=== PATIENT | female | born 1940 | race Caucasian/White ===

== ENCOUNTER 2017-01-21 17:57 | Inpatient (IN) | payer MEDICARE, BC ==
[~2017-01-21] VITALS: Ht 170.2 cm; Wt 76.8 kg
[~2017-01-21 17:57] MED LIST: ALEN10 PO; BLOOD PRESSURE; BONETAB; FISH1000 PO; FOLI800T12 PO; HYDR-3533 PO; TRAZ50TA78 PO; VITA250L PO; VITA500015 PO; ZOCO40TA PO
[2017-01-21 18:04] VITALS: BP 192/71; PULSE 122; RESP 20; TEMP 102.8; O2SAT 94
--- NOTE | 2017-01-21 18:43 | RADRPT ---
EXAM DATE/TIME: 01/21/2017 18:32 [facility] COMPARISON: No previous studies available for comparison. INDICATIONS : Fever, chest pain MEDICAL HISTORY : None. SURGICAL HISTORY : None. ENCOUNTER: Initial ACUITY: 4 - 6 days PAIN SCORE: 3/10 LOCATION: Bilateral chest FINDINGS: There is mild left base atelectasis. Lungs otherwise are clear. No pleural effusion. No pneumothorax. Heart size within normal limits. CONCLUSION: Mild left base atelectasis. Nathanael Umanzor MD on January 21, 2017 at 18:41 Board Certified Radiologist. This report was verified electronically.
[2017-01-21 19:12] LABS: AUTOMATED NEUTROPHIL # 8.9 TH/MM3 (1.8-7.7); BASOPHIL % 0.3 % (0.0-2.0); HEMATOCRIT 35.4 % (35.0-46.0); HEMO FLAGS DIFF FINAL; LYMPH % 10.6 % (9.0-44.0); LYMPHOCYTE # 1.2 TH/MM3 (1.0-4.8); MEAN CELL VOLUME 95.1 FL (80.0-100.0); MEAN CORPUSCULAR HEMOGLOBIN 32.4 PG (27.0-34.0); MEAN CORPUSCULAR HGB CONC 34.1 % (32.0-36.0); MONO % 10.7 % (0.0-8.0); NEUT % 78.4 % (16.0-70.0); PLATELET COUNT 225 TH/MM3 (150-450); RED BLOOD COUNT 3.73 MIL/MM3 (4.00-5.30); RED CELL DISTRIBUTION WIDTH 13.1 % (11.6-17.2); WHITE BLOOD COUNT 11.3 TH/MM3 (4.0-11.0)
[2017-01-21 19:15] LABS: BACTERIA, URINE MOD /hpf; BLOOD, URINE MOD (NEG); COMMENT (UR) CULTURE INDICATED; CULTURE IF INDICATED CULTURE INDICATED; GLUCOSE,URINE NEG (NEG); KETONE, URINE 10 mg/dL (NEG); MUCUS URINE FEW /lpf (OCC); NITRITE,URINE NEG (NEG); SQUAMOUS EPITHELIAL CELL URINE <1 /hpf (0-5); URINE COLOR YELLOW (YELLW/STRAW)
[2017-01-21 19:22] LABS: INTERNATIONAL NORMALIZED RATIO 1.2 RATIO; PROTHROMBIN TIME - PATIENT 12.8 SEC (9.8-11.6)
[2017-01-21 19:49] VITALS: BP 134/79; PULSE 90; RESP 22; O2SAT 95
[2017-01-21] MEDS ORDERED: SODIUM CHLOR 0.9% 1000 ML INJ 1,000 ML IV ONE (20:00)
[2017-01-21] MEDS ORDERED: ACETAMINOPHEN 325 MG TAB PO ONE (20:00)
[2017-01-21] MEDS ORDERED: cefTRIAXone INJ 1,000 MG in SODIUM CHLORIDE 0.9% INJ 100 ML IV ONE (20:00)
[2017-01-21 20:04] LABS: ANION GAP 9 MEQ/L (5-15); AST (GOT) 18 U/L (15-37); BICARBONATE 26.5 MEQ/L (21.0-32.0); BLOOD UREA NITROGEN 16 MG/DL (7-18); CHLORIDE 100 MEQ/L (98-107); GLOMERULAR FILTRATION RATE 45 ML/MIN (>89); POTASSIUM 3.3 MEQ/L (3.5-5.1); SODIUM (NA) 135 MEQ/L (136-145)
[2017-01-21 20:06] LABS: ALT (GPT) 21 U/L (10-53)
[2017-01-21 20:07] LABS: ALKALINE PHOSPHATASE 70 U/L (45-117); TOTAL BILIRUBIN ADULT 0.6 MG/DL (0.2-1.0)
--- NOTE | 2017-01-21 20:09 | PD ---
HPI Chief Complaint: Fever Time Seen by Provider: 19:55 Travel History International Travel<30 days: No Contact w/Intl Traveler<30days: No Traveled to known affect area: No History of Present Illness HPI The patient is a 76 year old female who presents to the [facility] emergency department with a history of reportedly feeling ill for the last 2 weeks. She reports that she's had chest pain in the center of her chest that comes and goes and she reports as a gnawing sensation. She reports that she's had generalized weakness, chills, subjective fever for the last 2-3 days associated with dysuria, urinary frequency, and urinary urgency. She called her primary care physician, Dr. Corbin Warner her today and he told her to report to the emergency department for evaluation and treatment. The patient arrives tachycardic with a heart rate in the 120s, fever to MAXIMUM TEMPERATURE of 102. The patient denies taking any fever reducers today. She denies taking aspirin on a daily basis. She denies any history of cardiac disease. She denies having any shortness of breath, radiation of pain from her chest. She denies having any nausea or diaphoresis. She denies having any vomiting or diarrhea. Her last bowel movement was earlier today. She denies having any blood in her stool or black or tarry stools. She denies having any cough or congestion. She denies having any neck pain. The patient reports that she did receive her pneumonia vaccine as well as her influenza vaccination this past season. She denies having any one-sided weakness, slurred speech, facial droop , difficulty with word finding ability, vision changes, or numbness or tingling to her extremities. [facility] Past Medical History Narrative Medical The patient's past medical history is significant for hyperlipidemia, hypertension, history of insomnia, history of osteopenia. Cancer: No High Cholesterol: Yes Diabetes: No Diminished Hearing: No Hepatitis: No Hiatal Hernia: No Hypertension: Yes Immunizations Current: Yes Thyroid Disease: No Tetanus Vaccination: Unknown Influenza Vaccination: Yes Menopausal: Yes Past Surgical History Narrative Surgical The patient's past surgical history is significant for ganglion cyst resection, hysterectomy, tonsillectomy. Gynecologic Surgery: Yes (PARTIAL HYSTERECTOMY) Hysterectomy: Yes Oral Surgery: Yes (TONSILLECTOMY) Tonsillectomy: Yes Other Surgery: Yes Social History Alcohol Use: Yes (occu red wine) Tobacco Use: Yes (quit 15 yrs ago more than a ppd) Substance Use: No Allergies-Medications (Allergen,Severity, Reaction): Coded Allergies: Penicillin (Verified Allergy, Severe, RASH, 05/31/14) Shellfish (Verified Allergy, Severe, RASH, 05/31/14) Reported Meds & Prescriptions Reported Meds & Active Scripts Active Review of Systems Except as stated in HPI: all other systems reviewed are Neg General / Constitutional: No: Fever Eyes: No: Visual changes HENT: No: Headaches, Rhinorrhea, Congestion, Neck Pain Cardiovascular: Positive: Chest Pain or Discomfort, No: Dyspnea on exertion Respiratory: No: Shortness of Breath Gastrointestinal: Positive: Loss of Appetite, No: Nausea, Vomiting, Diarrhea, Abdominal Pain, Constipation, Changes in Bowel Habits, Indigestion Genitourinary: Positive: Urgency, Frequency, Dysuria, No: Flank Pain Musculoskeletal: Positive: Myalgias, Pain Skin: No Rash Neurologic: Positive: Weakness (generalized weakness), No: Focal Abnormalities , Change in Mentation, Slurred Speech, Sensory Disturbance Psychiatric: No: Depression Endocrine: No: Polydipsia Hematologic/Lymphatic: No: Easy Bruising Physical Exam Narrative General: The patient is a well-developed well-nourished female in no acute distress. Head and Neck exam: Head is normocephalic atraumatic. Eyes: EOMI, pupils are equal round and reactive to light. Nose: Midline septum with pink mucous membranes Mouth: Dentition unremarkable. Tacky mucus membranes. Posterior oropharynx is not erythematous. No tonsillar hypertrophy. Uvula midline. Airway patent. Neck: No palpable lymphadenopathy. No nuchal rigidity. No thyromegaly. Cardiovascular: Regular rate and rhythm without murmurs, gallops, or rubs. No pulse deficit to the extremities and simultaneous auscultation and palpation of the radial artery. Lungs: Clear to auscultation bilaterally. No wheezes, rhonchi, or rales. Abdomen: Soft, without tenderness to palpation in all 4 quadrants of the abdomen. No guarding, rebound, or rigidity. Normal bowel sounds are audible. No tenderness on palpation of McBurney's point. Negative [place] sign. Extremities: No clubbing, cyanosis, or edema. 2+ pulses in all 4 extremities. No calf tenderness on palpation. Back: No spinous process tenderness to palpation. No costovertebral angle tenderness to palpation. Neurologic Exam: Grossly nonfocal. Skin Exam: No rash noted. Intact skin that is warm and dry. Data Data Last Documented VS Vital Signs Date Time Temp Pulse Resp B/P Pulse Ox O2 Delivery O2 Flow Rate FiO2 01/21/17 20:48 90 18 147/74 98 Room Air 01/21/17 18:04 102.8 Orders Complete Blood Count With Diff (01/21/17 18:20) Comprehensive Metabolic Panel (01/21/17 18:20) Urinalysis - C+S If Indicated (01/21/17 18:20) Lactic Acid Sepsis Protocol (01/21/17 18:20) Chest, Single Ap (01/21/17 18:20) Blood Culture (01/21/17 18:20) Iv Access Insert/Monitor (01/21/17 18:20) Electrocardiogram (01/21/17 ) Prothrombin Time / Inr (Pt) (01/21/17 18:44) Troponin I (01/21/17 18:51) Creatine Kinase (Cpk) (01/21/17 18:51) Urine Culture (01/21/17 18:28) Acetaminophen (Tylenol) (01/21/17 20:00) Sodium Chlor 0.9% 1000 Ml Inj (Ns 1000 M (01/21/17 20:00) Ceftriaxone Inj (Rocephin Inj) (01/21/17 20:00) B-Type Natriuretic Peptide (01/21/17 20:01) Potassium Chloride (Kcl) (01/21/17 21:00) Aspirin Chew (Aspirin Chew) (01/22/17 09:00) Nitroglycerin 2% Oint (Nitroglycerin 2% (01/21/17 21:15) Admit Order (Ed Use Only) (01/21/17 21:13) Labs Laboratory Tests Test 01/21/17 01/21/17 18:28 18:41 Urine Color YELLOW Urine Turbidity HAZY Urine pH 6.0 Urine Specific [place] 1.016 Urine Protein 30 mg/dL Urine Glucose (UA) NEG mg/dL Urine Ketones 10 mg/dL Urine Occult Blood MOD Urine Nitrite NEG Urine Bilirubin NEG Urine Urobilinogen LESS THAN 2.0 MG/DL Urine Leukocyte Esterase LARGE Urine RBC 18 /hpf Urine WBC /hpf Urine WBC Clumps OCC Urine Squamous Epithelial <1 /hpf Cells Urine Bacteria MOD /hpf Urine Mucus FEW /lpf Microscopic Urinalysis Comment CULTURE INDICATED White Blood Count 11.3 TH/MM3 Red Blood Count 3.73 MIL/MM3 Hemoglobin 12.1 GM/DL Hematocrit 35.4 % Mean Corpuscular Volume 95.1 FL Mean Corpuscular Hemoglobin 32.4 PG Mean Corpuscular Hemoglobin 34.1 % Concent Red Cell Distribution Width 13.1 % Platelet Count 225 TH/MM3 Mean Platelet Volume 7.8 FL Neutrophils (%) (Auto) 78.4 % Lymphocytes (%) (Auto) 10.6 % Monocytes (%) (Auto) 10.7 % Eosinophils (%) (Auto) 0.0 % Basophils (%) (Auto) 0.3 % Neutrophils # (Auto) 8.9 TH/MM3 Lymphocytes # (Auto) 1.2 TH/MM3 Monocytes # (Auto) 1.2 TH/MM3 Eosinophils # (Auto) 0.0 TH/MM3 Basophils # (Auto) 0.0 TH/MM3 CBC Comment DIFF FINAL Differential Comment Prothrombin Time 12.8 SEC Prothromb Time International 1.2 RATIO Ratio Sodium Level 135 MEQ/L Potassium Level 3.3 MEQ/L Chloride Level 100 MEQ/L Carbon Dioxide Level 26.5 MEQ/L Anion Gap 9 MEQ/L Blood Urea Nitrogen 16 MG/DL Creatinine 1.18 MG/DL Estimat Glomerular Filtration 45 ML/MIN Rate Random Glucose 124 MG/DL Lactic Acid Level 0.8 mmol/L Calcium Level 8.2 MG/DL Total Bilirubin 0.6 MG/DL Aspartate Amino Transf 18 U/L (AST/SGOT) Alanine Aminotransferase 21 U/L (ALT/SGPT) Alkaline Phosphatase 70 U/L Total Creatine Kinase 149 U/L Troponin I LESS THAN 0.02 NG/ML B-Type Natriuretic Peptide 28 PG/ML Total Protein 7.9 GM/DL Albumin 3.6 GM/DL [facility] Medical Decision Making Medical Screen Exam Complete: Yes Emergency Medical Condition: Yes Medical Record Reviewed: Yes Differential Diagnosis Sepsis related to pyelonephritis, versus pyelonephritis, versus dehydration, versus electrolyte arrangements, versus pneumonia, versus viral syndrome Narrative Course During the course of the patients emergency department visit, the patients history, examination, and differential diagnosis were reviewed with the patient. The patient had IV access obtained and blood work sent for analysis. The patient was placed on a map and chart mounter with oximetry and blood pressure monitoring. An EKG has been ordered. The patient's EKG shows a sinus tachycardia with a rate of 115, right bundle terrie block is noted. The patient 's EKG is compared to a prior EKG done at this facility in 2012 and the patient does have a history of right bundle branch block. The patient was initially provided a normal saline 1 L IV fluid bolus, Rocephin 1 g IV is administered after a urinary tract infection was noted by urinalysis. The patient was given Tylenol 650 by mouth 1 for fever. The patient was given aspirin 162 mg by mouth 1 for chest pain. The patient was given nitroglycerin 1 inch the chest wall. The patient is currently chest pain-free, however the pain seems to be coming and going. The patients laboratory studies were reviewed and remarkable for a white count of 11.3, hemoglobin 12.1, platelets 225 with 78.4 neutrophils, 10.7 monocytes, CMP is remarkable for a sodium of 135, potassium 3.3 which was supplemented orally, creatinine 1.18, glucose 124, lactic acid 0.8, PT 12.8, INR 1.2, urinalysis shows large leukocyte esterase 18 RBCs innumerable wbc's occasional clumps less than 1 squamous epithelial cell, moderate bacteria. Initial set of cardiac enzymes are within normal limits. Radiology studies were reviewed and remarkable for a chest x-ray that shows a mild left base atelectasis. A call was placed out to the patient's primary care physician, Dr. Costa. A call was ever received back, therefore the patient will be admitted to the [facility] service. The patients results were discussed with the patient, including the plan of care. I explained that further testing and/ or monitoring is indicated based on the patients history, examination, and/ or laboratory findings. Therefore, I recommended admission for additional evaluation. The patient expressed understanding and was agreeable with this plan. The patient was admitted to the hospital in stable condition and sent to a bed under the care of the [facility] service. Sepsis Criteria SIRS Criteria (2 or more): Temp > 100.9 or < 96.8, Heart rate over 90 Sepsis Criteria (SIRS+source): Infect source susp/known Physician Communication Physician Communication The patient's case was discussed with Dr. Mooney who did agree to admit the patient for further evaluation and treatment at this time. Diagnosis Primary Impression: Pyelonephritis Additional Impression: Chest pain, rule out acute myocardial infarction Admitting Information Admitting Physician Requests: Admit Marcy Knight MD Jan 21, 2017 20:09
[2017-01-21] MEDS ORDERED: SYMB80AE INH (20:14)
[2017-01-21] MEDS ORDERED: IPRAAER INH (20:14)
[2017-01-21] MEDS ORDERED: METF500T PO (20:14)
[2017-01-21] MEDS ORDERED: ATEN50TA PO (20:14)
[2017-01-21] MEDS ORDERED: SIMV20TA PO (20:14)
[2017-01-21] MEDS ORDERED: BUPR1TAB70 PO (20:14)
[2017-01-21] MEDS ORDERED: ASPI81CH CHEW (20:14)
[2017-01-21] MEDS ORDERED: ADVA230A INH (20:14)
[2017-01-21] MEDS ORDERED: AMLO5TAB2 PO (20:14)
[2017-01-21 20:48] VITALS: BP 147/74; PULSE 90; RESP 18; O2SAT 98
[2017-01-21] MEDS ORDERED: POTASSIUM CHLORIDE 20 MEQ CONTROLLED RELEASE TAB PO ONE (21:00)
[2017-01-21 21:04] LABS: CREATINE KINASE 149 U/L (26-192)
[2017-01-21] MEDS ORDERED: NITROGLYCERIN 2% OINT 1 GM PACKET TOPICAL ONE (21:15)
[2017-01-21] MEDS ORDERED: MORPHINE SULFATE 4 MG/ML INJ IV PRN (23:45)
[2017-01-22] VITALS (10 sets, daily range): BP systolic 121–149; BP diastolic 63–70; PULSE 75–102; RESP 14–22; TEMP 98.1–99.9; O2SAT 93–98
[2017-01-22] MEDS: HEPARIN SODIUM - SQ 10,000 UNITS/ML VIAL SQ SCH ×4 (00:02→22:57)
[2017-01-22] MEDS: SODIUM CHLOR 0.9% 1000 ML INJ 1,000 ML IV SCH ×3 (00:02→19:53)
--- NOTE | 2017-01-22 00:07 | HHI.HP ---
[facility] Roddy Costa MD Admission Diagnosis Pyelonephritis, Fever, Cp R/O UT Diagnoses: Chief Complaint: Nausea vomiting and fever and burning with urination Travel History International Travel<30 Days: No Contact w/Intl Traveler <30 Da: No Traveled to Known Affected Are: No History of Present Illness 76 years old female with history of hyperlipidemia, hypertension, osteopenia and insomnia presented to the ED complaining of worsening weakness and feeling ill for the last 2 weeks, she reported chest discomfort in the center of her chest around 4 out of 10, positive chills and fever along with dysuria and urinary frequency and urgency. Patient called her primary care physician who recommended for her to go to hospital. Patient denied any short of breath or chest pain radiation, she reported some nausea, no cough or flulike syndrome she did have her pneumonia and influenza vaccine for the last season. Review of Systems Constitutional: COMPLAINS OF: Fatigue, Fever, Chills Genitourinary: COMPLAINS OF: Urinary frequency, Urgency, Dysuria Except as stated in HPI: all other systems reviewed are Neg All systems reviewed and was positive for what is mentioned in history of present illness otherwise negative Past Family Social History Past Medical History The patient's past medical history is significant for hyperlipidemia, hypertension, history of insomnia, history of osteopenia. The patient's past surgical history is significant for ganglion cyst resection, hysterectomy, tonsillectomy. Past Surgical History As above Allergies: Coded Allergies: Penicillin (Verified Allergy, Severe, RASH, 01/22/17) Shellfish (Verified Allergy, Severe, RASH, 01/22/17) Family History Review with the patient,not aware of significant medical history runs in his family Social History Alcohol Use: Yes (occu red wine) Tobacco Use: Yes (quit 15 yrs ago more than a ppd) Substance Use: No Physical Exam Vital Signs Vital Signs Date Time Temp Pulse Resp B/P Pulse Ox O2 Delivery O2 Flow Rate FiO2 01/21/17 20:48 90 18 147/74 98 Room Air 01/21/17 19:49 90 22 134/79 95 Room Air 01/21/17 18:04 102.8 122 20 192/71 94 Physical Exam GENERAL: This is a well-nourished, well-developed patient, in no apparent distress. SKIN: No rashes, warm and dry HEAD: Atraumatic. Normocephalic. EYES: Pupils equal round and reactive. Extraocular motions intact. No scleral icterus. ENT: Nose without bleeding, or drainage, Airway patent. NECK: Trachea midline. Supple CARDIOVASCULAR: Regular rate and rhythm without murmurs, gallops, or rubs. RESPIRATORY: Fair air entry bilaterally. No wheezes, rales, or rhonchi. GASTROINTESTINAL: Abdomen soft, non-tender, nondistended. Positive bowel sounds CVA tenderness: Relatively positive on the left MUSCULOSKELETAL: Extremities without clubbing, cyanosis, or edema. Pedal pulses appreciated NEUROLOGICAL: Awake and alert. Moves all extremity. Normal speech.no focal neurological deficit Laboratory Laboratory Tests Test 01/21/17 01/21/17 18:28 18:41 Urine Color YELLOW Urine Turbidity HAZY Urine pH 6.0 Urine Specific [place] 1.016 Urine Protein 30 Urine Glucose (UA) NEG Urine Ketones 10 Urine Occult Blood MOD Urine Nitrite NEG Urine Bilirubin NEG Urine Urobilinogen LESS THAN 2.0 Urine Leukocyte Esterase LARGE Urine RBC 18 Urine WBC Urine WBC Clumps OCC Urine Squamous Epithelial <1 Cells Urine Bacteria MOD Urine Mucus FEW Microscopic Urinalysis Comment CULTURE INDICATED White Blood Count 11.3 Red Blood Count 3.73 Hemoglobin 12.1 Hematocrit 35.4 Mean Corpuscular Volume 95.1 Mean Corpuscular Hemoglobin 32.4 Mean Corpuscular Hemoglobin 34.1 Concent Red Cell Distribution Width 13.1 Platelet Count 225 Mean Platelet Volume 7.8 Neutrophils (%) (Auto) 78.4 Lymphocytes (%) (Auto) 10.6 Monocytes (%) (Auto) 10.7 Eosinophils (%) (Auto) 0.0 Basophils (%) (Auto) 0.3 Neutrophils # (Auto) 8.9 Lymphocytes # (Auto) 1.2 Monocytes # (Auto) 1.2 Eosinophils # (Auto) 0.0 Basophils # (Auto) 0.0 CBC Comment DIFF FINAL Differential Comment Prothrombin Time 12.8 Prothromb Time International 1.2 Ratio Sodium Level 135 Potassium Level 3.3 Chloride Level 100 Carbon Dioxide Level 26.5 Anion Gap 9 Blood Urea Nitrogen 16 Creatinine 1.18 Estimat Glomerular Filtration 45 Rate Random Glucose 124 Lactic Acid Level 0.8 Calcium Level 8.2 Total Bilirubin 0.6 Aspartate Amino Transf 18 (AST/SGOT) Alanine Aminotransferase 21 (ALT/SGPT) Alkaline Phosphatase 70 Total Creatine Kinase 149 Troponin I LESS THAN 0.02 B-Type Natriuretic Peptide 28 Total Protein 7.9 Albumin 3.6 Date/Time Procedure Status Source Growth 01/21/17 18:45 Aerobic Blood Culture Received Blood Peripheral Pending 01/21/17 18:45 Anaerobic Blood Culture Received Blood Peripheral Pending 01/21/17 18:28 Urine Culture Received Urine Clean Catch Pending Result Diagram: 01/21/17 1841 01/21/17 1841 Assessment and Plan Assessment and Plan -Sepsis with spiking fever 102.8, tachycardia 122, pulse ox 94, WBC 11.3 with neutrophils 78.4 possibly due to UTI/pyelonephritis Admitted inpatient, lactic acid within normal limits, iv fluid, Rocephin iv, monitor BMP CBC, renal ultrasound for hydronephrosis - Dysuria with nausea vomiting and left CVA tenderness consistent with possible pyelonephritis/complicated UTI UA are personally reviewed by me showed proteinuria moderate occult blood, large leukocytes esterase, 18 RBCs, innumerable WBC and moderate bacteria Management as above as above -LAURA: Mostly due to UTI creatinine 1.18 GFR measured 45, avoid nephrotoxin, check renal ultrasound, continue iv fluid, monitor BMP -History of hypertension hyperlipidemia insomnia and also continue: Home meds Physician Certification 2 Midnight Certification Type: Admission for Inpatient Services Order for Inpatient Services The services are ordered in accordance with Medicare regulations or non- Medicare payer requirements, as applicable. In the case of services not specified as inpatient-only, they are appropriately provided as inpatient services in accordance with the 2-midnight benchmark. Estimated LOS (days): 2 days is the estimated time the patient will need to remain in the hospital, assuming treatment plan goals are met and no additional complications. Post-Hospital Plan: Not yet determined Lina Mooney MD Jan 22, 2017 00:07
[2017-01-22] MEDS: oxyCODONE/ACETAMINOPHEN 5 MG/325 MG TAB PO PRN ×3 (01:29→22:48)
[2017-01-22] MEDS: ACETAMINOPHEN 325 MG TAB PO PRN ×2 (04:25→16:37)
[2017-01-22 07:56] LABS: AUTOMATED NEUTROPHIL # 7.4 TH/MM3 (1.8-7.7); BASOPHIL % 0.3 % (0.0-2.0); EOSINOPHIL % 0.1 % (0.0-4.0); HEMATOCRIT 28.9 % (35.0-46.0); HEMO FLAGS DIFF FINAL; LYMPH % 12.6 % (9.0-44.0); LYMPHOCYTE # 1.3 TH/MM3 (1.0-4.8); MEAN CELL VOLUME 96.2 FL (80.0-100.0); MEAN CORPUSCULAR HEMOGLOBIN 32.9 PG (27.0-34.0); MEAN CORPUSCULAR HGB CONC 34.2 % (32.0-36.0); PLATELET COUNT 180 TH/MM3 (150-450); RED CELL DISTRIBUTION WIDTH 13.4 % (11.6-17.2)
[2017-01-22 08:40] LABS: BICARBONATE 26.3 MEQ/L (21.0-32.0); POTASSIUM 3.7 MEQ/L (3.5-5.1)
[2017-01-22] MEDS: ONDANSETRON HCL 4 MG/2 ML VIAL IV PRN ×2 (08:59→22:53)
[2017-01-22] MEDS: ASPIRIN 81 MG CHEW TAB CHEW SCH (09:00)
[2017-01-22 09:04] LABS: CALCIUM-PROTEIN CORRECTED 7.7 MG/DL (8.5-10.1)
--- NOTE | 2017-01-22 10:40 | RADRPT ---
EXAM DATE/TIME: 01/22/2017 08:31 [facility] COMPARISON: No previous studies available for comparison. INDICATIONS : Flank pain. MEDICAL HISTORY : Hypercholesterolemia. Hypertension. Reading glasses. Chest pain. SURGICAL HISTORY : Tonsillectomy. Partial Hysterectomy. Back fusion 4-5 and 6. ENCOUNTER: Initial ACUITY: 1 day PAIN SCORE: 3/10 LOCATION: Left back. MEASUREMENTS: RIGHT KIDNEY: 10.1 x 4.9 x 4.3 cm LEFT KIDNEY: 11.5 x 5.4 x 6.1 cm FINDINGS: RIGHT KIDNEY: Renal cortex is normal in thickness and echotexture. No hydronephrosis, stone, or mass. LEFT KIDNEY: Renal cortex is normal in thickness and echotexture. No hydronephrosis, stone, or mass. BLADDER: Within normal limits given the degree of distension. CONCLUSION: 1. No evidence for obstructive uropathy as questioned. 2. Unremarkable renal ultrasound examination. Shakir Nielsen MD on January 22, 2017 at 10:37 Board Certified Radiologist. This report was verified electronically.
[2017-01-22] MEDS ORDERED: cefTRIAXone INJ 1,000 MG in SODIUM CHLORIDE 0.9% INJ 100 ML IV SCH (21:00)
--- NOTE | 2017-01-22 21:46 | EKG ---
Date Performed: 01/21/2017 Time Performed: 18:46:22 PTAGE: 76 years EKG: SINUS TACHYCARDIA RIGHT BUNDLE BRANCH BLOCK ANTERIOR MYOCARDIAL INFARCTION Since previous t racing, no significant change noted ABNORMAL ECG PREVIOUS TRACING : 08/21/2011 08.21 DOCTOR: Kierra Jennings Interpretating Date/Time 01/22/2017 21:44:37
[2017-01-23] VITALS: BP 135/68; PULSE 78; RESP 18; TEMP 98.7; O2SAT 94
[2017-01-23 04:00] VITALS: BP 134/72; PULSE 80; RESP 18; TEMP 98.2; O2SAT 95
[2017-01-23] MEDS: ONDANSETRON HCL 4 MG/2 ML VIAL IV PRN ×2 (05:48→12:27)
[2017-01-23] MEDS: oxyCODONE/ACETAMINOPHEN 5 MG/325 MG TAB PO PRN (05:48)
[2017-01-23] MEDS: SODIUM CHLOR 0.9% 1000 ML INJ 1,000 ML IV SCH (05:48)
[2017-01-23] MEDS: HEPARIN SODIUM - SQ 10,000 UNITS/ML VIAL SQ SCH (07:11)
[2017-01-23] MEDS: ASPIRIN 81 MG CHEW TAB CHEW SCH (07:11)
[2017-01-23 08:00] VITALS: BP 141/67; PULSE 71; PULSE 73; RESP 20; TEMP 98.1; O2SAT 95
[2017-01-23 12:00] VITALS: BP 142/69; PULSE 70; RESP 20; TEMP 97.9; O2SAT 95
--- NOTE | 2017-01-23 12:23 | HHI.PR ---
Subjective Remarks patient awake and alert, slight nausea, c/o headache no dysuria anymore, no flank pain, no abdominal pain T down, no chills but feels cold Objective Vitals Vital Signs Date Time Temp Pulse Resp B/P Pulse Ox O2 Delivery O2 Flow Rate FiO2 01/23/17 08:00 98.1 73 20 141/67 95 01/23/17 08:00 71 01/23/17 04:00 98.2 80 18 134/72 95 01/23/17 00:00 98.7 78 18 135/68 94 01/22/17 20:32 86 01/22/17 20:00 99.3 86 18 148/70 93 01/22/17 16:00 99.9 94 20 149/70 93 I/O 01/22/17 01/22/17 01/22/17 01/23/17 01/23/17 01/23/17 07:00 15:00 23:00 07:00 15:00 23:00 Intake Total 562 ml 1505 ml 1040 ml 1040 ml Output Total 450 ml 300 ml 500 ml Balance 562 ml 1055 ml 740 ml 540 ml Intake Oral 720 ml 240 ml 240 ml IV Total 562 ml 785 ml 800 ml 800 ml Output Urine Total 450 ml 300 ml 500 ml # Bowel Movements 0 0 0 Result Diagram: 01/22/17 0657 01/22/17 0657 Imaging Last Impressions Renal Ultrasound 01/22/17 0000 Signed Impressions: Service Date/Time: Sunday, January 22, 2017 08:31 - CONCLUSION: 1. No evidence for obstructive uropathy as questioned. 2. Unremarkable renal ultrasound examination. Shakir Nielsen MD Chest X-Ray 01/21/17 1820 Signed Impressions: Service Date/Time: Saturday, January 21, 2017 18:32 - CONCLUSION: Mild left base atelectasis. Nathanael Umanzor MD Objective Remarks awakea nd alert, NAD anicteric lungs clear regular rhythm abdomen soft, good bowel sounds, nontender, no CVA tenderness extremities no edema A/P Assessment and Plan 76 years old female UTI- E coli - got Rocephin x 2 days -start Levaquin 500 mg po today x 5 days -Zofran prn for nausea. - afebrile PARRA, nausea likely from UTI Possible DC today- FF up with PCP for repeat UA as OP Anay Lao MD Jan 23, 2017 12:23
--- NOTE | 2017-01-23 12:49 | HHI.FF ---
Face to Face Verification Diagnosis: (1) UTI (urinary tract infection) Home Health Nursing Order: Medical education Signs/symptoms of disease process Medication education-adverse effect Nursing assessment with vital signs Home Health Aide Order: To Assist In: Bathing and personal care Abattoir Manager Order: To Evaluate: Living conditions/environment, Support services I have seen patient Jeane Travis on 01/23/17. My clinical findings support the need for the requested home health care services because: Need for psychosocial assistance Infection w/ risk of complications I certify that my clinical findings support that this patient is homebound because: Need for psychosocial assistance Anay Lao MD Jan 23, 2017 12:49
[2017-01-23] MEDS ORDERED: LEVOFLOXACIN 500 MG TAB PO SCH (13:00)
--- NOTE | 2017-01-23 13:41 | RADRPT ---
EXAM DATE/TIME: 01/23/2017 13:18 [facility] COMPARISON: No previous studies available for comparison. INDICATIONS : Headache RADIATION DOSE: 52.73 CTDIvol (mGy) MEDICAL HISTORY : Hypertension. SURGICAL HISTORY : Hysterectomy. ENCOUNTER: Initial ACUITY: 1 day PAIN SCALE: 5/10 LOCATION: cranial TECHNIQUE: Multiple contiguous axial images were obtained of the head. Using automated exposure control and adj ustment of the mA and/or kV according to patient size, radiation dose was kept as low as reasonably a chievable to obtain optimal diagnostic quality images. FINDINGS: CEREBRUM: The ventricles are normal for age. No evidence of midline shift, mass lesion, hemorrhage or acute in farction. No extra-axial fluid collections are seen. POSTERIOR FOSSA: The cerebellum and brainstem are intact. The 4th ventricle is midline. The cerebellopontine angle i s unremarkable. EXTRACRANIAL: The visualized portion of the orbits is intact. SKULL: The calvaria is intact. No evidence of skull fracture. CONCLUSION: No acute disease. Jaime Frazier Jr., MD on January 23, 2017 at 13:37 Board Certified Radiologist. This report was verified electronically.
[2017-01-23] MEDS ORDERED: LEVA500T20 PO (13:50)
[2017-01-23] MEDS ORDERED: ZOFR4TAB PO (13:51)
== END 2017-01-23 15:53 | disposition home health service (06) | DRG 690 ==
LOC: NEPC 17:57 → NEDA 21:16 → N04B 01-22 01:00
PROVIDERS: ADMIT Internal Medicine; ATTEND Internal Medicine
DX: N39.0 Urinary tract infection, site not specified (principal); N17.9 Acute kidney failure, unspecified; J98.11 Atelectasis; I45.10 Unspecified right bundle-branch block; I10 Essential (primary) hypertension; E78.5 Hyperlipidemia, unspecified; R30.0 Dysuria; R39.15 Urgency of urination; M85.80 Other specified disorders of bone density and structure, unspecified site; G47.00 Insomnia, unspecified; E78.00 Pure hypercholesterolemia, unspecified; Z87.891 Personal history of nicotine dependence; Z88.0 Allergy status to penicillin; Z91.013 Allergy to seafood; R11.2 Nausea with vomiting, unspecified; B96.20 Unspecified Escherichia coli [E. coli] as the cause of diseases classified elsewhere
CPT/HCPCS: 70450; 71010; 76775; 80048; 80053; 81001; 82550; 83605; 83690; 83880; 84155; 84484; 85025; 85610; 87040; 87077; 87086; 87186; 93005; 96365; J0696; J1644; J2405; J7030

== ENCOUNTER 2018-01-30 07:56 | Emergency (ER) | payer MEDICARE, BC ==
[~2018-01-30] VITALS: Ht 172.7 cm; Wt 78.0 kg
[~2018-01-30 07:56] MED LIST changes: -ALEN10 PO; -BLOOD PRESSURE; -BONETAB; -FISH1000 PO; -FOLI800T12 PO; -HYDR-3533 PO; +LEVA500T33 PO; -TRAZ50TA78 PO; -VITA250L PO; -VITA500015 PO; -ZOCO40TA PO; +ZOFR4TAB PO
[2018-01-30 08:03] VITALS: BP 149/70; PULSE 83; RESP 18; TEMP 98; O2SAT 97
[2018-01-30] MEDS ORDERED: SIMV40TA PO (08:11)
[2018-01-30] MEDS ORDERED: TRAZ50TA12 PO (08:11)
[2018-01-30] MEDS ORDERED: AMLO5TAB2 PO (08:11)
[2018-01-30] MEDS ORDERED: MEDR4PAK PO (08:27)
--- NOTE | 2018-01-30 08:27 | PD ---
HPI Chief Complaint: Allergic/Adverse Reaction Time Seen by Provider: 08:10 Travel History International Travel<30 days: No Contact w/Intl Traveler<30days: No Traveled to known affect area: No History of Present Illness HPI This 77-year-old female is complaining of swelling of her lips. She has been seeing Dr. Beltran for an infection of both of her toes. She has had a lot of scaling of the skin and some oozing from under the nail. She has been on Bactrim as well as an antifungal. 3 days ago she was changed to clindamycin. The day after she started the clindamycin she noted swelling of her lips. She did not take the clindamycin yesterday and the lip swelling has been persistent. She has taken some Benadryl. She had been on prednisone but is not on it now. She has some itching around the lips. She is not short of breath PFSH Past Medical History Asthma: No Heart Rhythm Problems: No Cancer: No Cardiovascular Problems: No High Cholesterol: Yes Chest Pain: Yes Congestive Heart Failure: No COPD: No Cerebrovascular Accident: No Diabetes: No Diminished Hearing: No GERD: No Genitourinary: No Hepatitis: No Hiatal Hernia: No Hypertension: Yes Musculoskeletal: No Neurologic: No Reproductive: No Respiratory: No Immunizations Current: Yes Migraines: No Seizures: No Sleep Apnea: No Thyroid Disease: No Ulcer: No Influenza Vaccination: Yes ?: Not Menopausal: Yes Past Surgical History Gynecologic Surgery: Yes (PARTIAL HYSTERECTOMY) Hysterectomy: Yes Oral Surgery: Yes (TONSILLECTOMY) Tonsillectomy: Yes Other Surgery: Yes Social History Alcohol Use: Yes (occu red wine) Tobacco Use: Yes (quit 15 yrs ago more than a ppd) Substance Use: No Allergies-Medications (Allergen,Severity, Reaction): Coded Allergies: clindamycin (Verified Allergy, Severe, 01/30/18) penicillin G (Unverified Allergy, Severe, RASH, 01/30/18) shellfish derived (Unverified Allergy, Severe, RASH, 01/30/18) Reported Meds & Prescriptions Reported Meds & Active Scripts Active Reported Trazodone (Trazodone HCl) 50 Mg Tab 50 Mg PO HS Simvastatin 40 Mg Tab 40 Mg PO HS Amlodipine (Amlodipine Besylate) 5 Mg Tab 5 Mg PO HS Review of Systems General / Constitutional: No: Fever, Chills Eyes: No: Diploplia HENT: No: Headaches Cardiovascular: No: Chest Pain or Discomfort, Palpitations Respiratory: No: Cough Gastrointestinal: No: Nausea Genitourinary: No: Urgency Musculoskeletal: No: Myalgias Skin: Positive Rash, Positive Itching, Positive Lumps Hematologic/Lymphatic: No: Easy Bruising Physical Exam Narrative GENERAL: Well-developed female SKIN: Focused skin assessment warm/dry. HEAD: Atraumatic. Normocephalic. EYES: Pupils equal and round. No scleral icterus. No injection or drainage. ENT: No nasal bleeding or discharge. Mucous membranes pink and moist. There is some swelling of both lips. It is mild and the airway is not threatened. The tongue is normal NECK: Trachea midline. No JVD. CARDIOVASCULAR: Regular rate and rhythm. No murmur appreciated. RESPIRATORY: No accessory muscle use. Clear to auscultation. Breath sounds equal bilaterally. GASTROINTESTINAL: Abdomen soft, non-tender, nondistended. Hepatic and splenic margins not palpable. MUSCULOSKELETAL: No obvious deformities. No clubbing. No cyanosis. No edema. Both of her great toes have some erythema. There is some drainage from under the nails. NEUROLOGICAL: Awake and alert. No obvious cranial nerve deficits. Motor grossly within normal limits. Normal speech. PSYCHIATRIC: Appropriate mood and affect; insight and judgment normal. Data Data Last Documented VS Vital Signs Date Time Temp Pulse Resp B/P (MAP) Pulse Ox O2 Delivery O2 Flow Rate FiO2 01/30/18 08:11 98 Room Air 01/30/18 08:03 98.0 83 18 149/70 (96) Orders Orders Prednisone (Deltasone) (01/30/18 08:30) [facility] Medical Decision Making Medical Screen Exam Complete: Yes Emergency Medical Condition: Yes Medical Record Reviewed: Yes Differential Diagnosis Differential includes adverse medication reaction, toe infections Narrative Course Patient is seeing Dr. Beltran for these toe infections. She did not improve with Bactrim and was changed to clindamycin and appears to be having an adverse reaction to the clindamycin. I am going to recommend that she stop the clindamycin and I will give her a brief course of steroids. She needs to follow -up with Dr. Beltran regarding the toe infection. Diagnosis Primary Impression: Adverse drug reaction Scripts Methylprednisolone Dosepak (Medrol Dosepak) 4 Mg Dspk 4 MG PO DIRECTED, #1 DSPK 0 Refills Per Pharmacist direction Prov: Griffin Pablo MD 01/30/18 Disposition: 01 DISCHARGE HOME Condition: Stable Griffin Pablo MD Jan 30, 2018 08:27
[2018-01-30] MEDS ORDERED: predniSONE 20 MG TAB PO ONE (08:30)
== END 2018-01-30 08:54 | disposition home or self-care (01) ==
LOC: PHED 07:56
DX: R22.0 Localized swelling, mass and lump, head (principal); L29.9 Pruritus, unspecified; T36.8X5A Adverse effect of other systemic antibiotics, initial encounter; L08.9 Local infection of the skin and subcutaneous tissue, unspecified; E78.00 Pure hypercholesterolemia, unspecified; I10 Essential (primary) hypertension; Z87.891 Personal history of nicotine dependence
CPT/HCPCS: 99283; J7512